=== PATIENT | male | born 1960 | race American Indian/Alaskan Native ===

== ENCOUNTER 2016-08-05 16:44 | Emergency (ER) | payer OTHER ==
[2016-08-05] MEDS ORDERED: TETRACAINE 0.5% OU STA (16:59)
[2016-08-05] MEDS ORDERED: FUL-GLO OP ONE ×2 (16:59→19:05)
--- NOTE | 2016-08-05 17:02 | Emergency Department Report ---
Chief Complaint: Eye Problems Stated Complaint: EYE INJURY X WKS/WORK RELATED Time Seen by Provider: 08/05/16 16:58 - HPI History of Present Illness: PT states a few weeks ago he got fluid misted in his eyes. PT states he has had eye irritation. PT denies decreased vision. - ROS Review of Systems: - blurred vision + occasional white drainage - Exam Physical Exam: EOMI conjunctiva mildly injected margarette MSE screening note: Focused history and physical exam performed. Due to findings the following was ordered: eye set up ED Disposition for MSE Condition: Stable
[2016-08-05] MEDS ORDERED: MOTRIN PO ONE (19:42)
[2016-08-05] MEDS ORDERED: BOOSTRIX IM ONE (19:42)
--- NOTE | 2016-08-05 19:52 | Emergency Department Report ---
Eye Injury/Foreign Body - HPI Duration: Today Eye Location: Bilateral Severity: Mild Tetanus Status: Up to Date Eye Symptoms: Eye Pain: Yes, Blurred Vision: No, Eye Redness: Yes, Grinding/ Hammering Metal: No, Used Eye Protection: Yes, Contact Lens Use: No, Recalls Injury: Yes (patient states that 2 weeks ago while at work a chemical vapor may have sprayed him near the eyes.) Other History: 56-year-old male past medical history none presents with complaint of approximately 3 or more weeks of bilateral eye irritation slightly worse on left than right. Patient reports eyeball redness mild watery tearing and itching sensation in both eyes. Patient denies any headache no fevers no chills denies any crusty or purulent eye drainage. No nausea or vomiting reported. No floaters or black curtain sensation and visual field. ED Review of Systems ROS: Stated complaint: EYE INJURY X WKS/WORK RELATED Other details as noted in HPI Constitutional: denies: chills, fever Eyes: eye pain, eye discharge. denies: vision change ENT: denies: ear pain, throat pain Respiratory: denies: cough, shortness of breath, wheezing Cardiovascular: denies: chest pain, palpitations Endocrine: no symptoms reported Gastrointestinal: denies: abdominal pain, nausea, diarrhea Genitourinary: denies: urgency, dysuria Musculoskeletal: denies: back pain, joint swelling, arthralgia Skin: denies: rash, lesions Neurological: denies: headache, weakness, paresthesias Psychiatric: denies: anxiety, depression Hematological/Lymphatic: denies: easy bleeding, easy bruising ED Past Medical Hx - Past Medical History Previous Medical History?: No - Surgical History Past Surgical History?: No - Social History Smoking Status: Never Smoker Substance Use Type: None - Medications Home Medications: Home Medications Medication Instructions Recorded Confirmed Last Taken Type Glycerin/Propylene Glycol 1 drop OP Q4H PRN #1 bottle 08/05/16 Unknown Rx [Artificial Tears Drops] Ibuprofen [Motrin] 400 mg PO Q8H PRN #25 tablet 08/05/16 Unknown Rx Tetrahydrozoline HCl/Zn Sulf 1 drop OP Q8H PRN #1 bottle 08/05/16 Unknown Rx [Visine Allergy Relief Drop] Tobramycin 0.3% [Tobrex] 1 drop OU Q6H #1 bottle 08/05/16 Unknown Rx Eye Injury Exam - Exam General: Vital signs noted. No distress. Alert and acting appropriately. - Visual Acuity Right Vision Acuity Degree: 20/20 Eye Exam: Both Chemosis (very mild ecchymosis and bilateral conjunctival injection), Both Fluorescein Uptake, Neither Injection, Neither Abnormal Pupil, Neither EOMI, Neither Eye Foreign Body, Neither Lid Foreign Body, Neither Mucous Discharge, Neither Purulent Discharge, Neither Photophobia Left Vision Acuity Degree: 20/20 Eye Exam: Neither Injection, Neither Chemosis, Neither Abnormal Pupil, Neither EOMI, Neither Eye Foreign Body, Neither Lid Foreign Body, Neither Mucous Discharge, Neither Purulent Discharge, Neither Fluorescein Uptake (mall areas of corneal abrasions unforeseen exam, small abrasion to the left of the iris in right eye. Multiple small abrasions nor near the pupil adjacent to limbus left eye) Bilateral Vision Acuity Degree: 20/20 Eye Exam: Neither Injection, Neither Chemosis, Neither Abnormal Pupil, Neither EOMI, Neither Eye Foreign Body, Neither Lid Foreign Body, Neither Mucous Discharge, Neither Purulent Discharge, Neither Fluorescein Uptake, Neither Fluorescein Uptake (slit lamp), Neither Cell/Flare (slit lamp), Neither Corneal Edema, Neither Photophobia Exam: Small areas of uptake and multiple small corneal abrasions bilateral eyes but not near pupils. No foreign body visualized with eyelid eversion on forcing staining. Intraocular pressure measured in both eyes using Omid-Pen. 10, 11,10 left eye, 12, 12, 13 right eye. PH of b/l surfaces measured with pH paper. PH paper in 7.0 range as per color. ED Course Vital Signs 08/05/16 16:58 Temperature 98.9 F Pulse Rate 78 Respiratory 18 Rate Blood Pressure 121/78 O2 Sat by Pulse 100 Oximetry ED Medical Decision Making - Medical Decision Making A/P: Bilateral corneal abrasions 1-vision is 20/20 bilaterally on my exam using glasses. No overt lesion overlying pupil. 2-will cover patient empirically with tobramycin drops, artificial tears, Motrin 3-tetanus updated today 4-patient provided with ophthalmology follow-up 5- I educated patient on signs and symptoms and management of corneal abrasions 6-based on the history provided by patient it is possible that this was due to chemical exposure over 3 weeks ago. PH is normal and patient's vision is intact no signs of corneal ulcers on b/l flourescien exam Critical care attestation.: If time is entered above; I have spent that time in minutes in the direct care of this critically ill patient, excluding procedure time. ED Disposition Clinical Impression: Corneal abrasion of both eyes Qualifiers: Encounter type: initial encounter Qualified Code(s): S05.01XA - Injury of conjunctiva and corneal abrasion without foreign body, right eye, initial encounter; S05.02XA - Injury of conjunctiva and corneal abrasion without foreign body, left eye, initial encounter Disposition: TO HOME OR SELFCARE Is pt being admited?: No Does the pt Need Aspirin: No Condition: Stable Instructions: Corneal Abrasion (ED) Prescriptions: Glycerin/Propylene Glycol [Artificial Tears Drops] 1 drop OP Q4H PRN #1 bottle PRN Reason: Itching Ibuprofen [Motrin] 400 mg PO Q8H PRN #25 tablet PRN Reason: Pain Tetrahydrozoline HCl/Zn Sulf [Visine Allergy Relief Drop] 1 drop OP Q8H PRN #1 bottle PRN Reason: Itching Tobramycin 0.3% [Tobrex] 1 drop OU Q6H #1 bottle Referrals: KATIA BELLE MD [Staff Physician] - 3-5 Days Forms: Work/School Release Form(ED) Time of Disposition: 19:59
[2016-08-05 20:16] VITALS: BP 124/65
== END 2016-08-05 20:18 | disposition home or self-care (01) ==
LOC: ED 16:44
DX: S05.01XA Injury of conjunctiva and corneal abrasion without foreign body, right eye, initial encounter (principal); S05.02XA Injury of conjunctiva and corneal abrasion without foreign body, left eye, initial encounter; X58.XXXA Exposure to other specified factors, initial encounter; Y93.9 Activity, unspecified; Y99.9 Unspecified external cause status; Y92.9 Unspecified place or not applicable
CPT/HCPCS: 90471; 90715